=== PATIENT | male | born 1985 | race Caucasian/White ===

== ENCOUNTER 2024-12-14 13:17 | Outpatient (CLI) | payer BC, SELFPAY | END 2024-12-14 13:18 | disposition home or self-care (01) | LOC: FRMREF 13:19 | PROVIDERS: PCP Nurse Practitioner Family; Visit Provider Nurse Practitioner Family | DX: K21.9 Gastro-esophageal reflux disease without esophagitis (principal); R53.83 Other fatigue; Z13.220 Encounter for screening for lipoid disorders | CPT/HCPCS: 80053; 80061; 84270; 84402; 84403 ==

== ENCOUNTER 2025-11-07 09:06 | Outpatient (CLI) | payer BC, SELFPAY | END 2025-11-07 09:07 | disposition home or self-care (01) | LOC: NFLDREF 11-13 05:56 | PROVIDERS: PCP Nurse Practitioner Family; Referring Provider Nurse Practitioner Family; Visit Provider Family Medicine | DX: Z00.00 Encounter for general adult medical examination without abnormal findings (principal); Z13.6 Encounter for screening for cardiovascular disorders | CPT/HCPCS: 80053; 80061 ==